=== PATIENT | male | born 1965 | race Caucasian/White ===

== ENCOUNTER 2017-03-21 09:20 | Emergency (ER) | payer OTHER ==
--- NOTE | ~2017-03-21 | CT4 ---
[facility] A Service of [facility] RADIOLOGY TEXT RESULTS PATIENT: CARLA PALOMARES LOCATION: [facility] : 61 UNIT #: [id number] AGE: [address]: Michael Polo MD SEX: M ORDER DR: [id number] [facility] [address] [place], [place] [address] [id number] MR#: [id number] #: [id number] NAME: CARLA PALOMARES : 1965 SEX: M STUDY DATE/TIME: 03/21/2017 UNIT: [facility] ROOM: STUDY DESCRIPTION: CT Abd and Pelv Wo Cont Attending Physician: Michael Polo M.D. Ordering Physician: Michael Polo M.D. Primary Care Physician: Drake Archer M.D. MEDICAL IMAGING REPORT This report is preliminary unless electronic signature is present EXAM CT abdomen and pelvis without contrast 03/21/2017 1233 hours. HISTORY 51-year-old man with left flank pain today. History of lymphoma. COMPARISON 02/06/2016 TECHNIQUE Helical noncontrasted images were obtained from the lung bases through the pubic symphysis without oral or intravenous contrast. Sagittal and coronal reconstructions were performed. Total exam DLP 783 mGy-cm. This CT exam was performed with one or more of the following radiation dose reduction techniques: automatic exposure control, adjustment of mA and/or kV according to patient size, and iterative reconstruction. FINDINGS Images through the lung bases are clear. There is no pleural effusion. The distal esophagus is normal. There is no retrocrural adenopathy. Images through the abdomen demonstrate a tiny cyst in the liver superiorly, unchanged. The spleen is normal in size and density. The pancreas, gallbladder, bile ducts, and adrenal glands are normal. The kidneys demonstrate no renal masses, stones, or distension. There are no renal or ureteral calculi. The abdominal aorta is normal in caliber with minimal atherosclerotic calcification present. The stomach and small bowel are normal. There is moderate stool in the colon without colonic wall thickening. The appendix is normal. [facility] A Service of [facility] RADIOLOGY TEXT RESULTS PATIENT: CARLA PALOMARES [id number] [birth year] UNIT #: [id number] AGE: [address]: Michael Polo MD SEX: M ORDER DR: The bladder, seminal vesicles, and prostate are normal. Again demonstrated are bilateral pelvic and inguinal lymph nodes. These were present on 02/06/2016, but each of the measured nodes is slightly larger, concerning for active lymphoma. Example right inguinal canal node measures 2.8 x 1.6 cm, previously 2.4 x 1.5 cm. Example left external iliac chain node measures 3.8 x 2.2 cm, previously 3.3 x 1.9 cm. Right inguinal node measures 3.0 x 2.1 cm, previously 2.9 x 1.4 cm. Left inguinal node measures 4.4 x 1.5 cm, previously 4.2 x 1.1 cm. There is a lymph node more superiorly in the pelvis medial to the right common iliac artery and vein measuring 1.7 x 1.6 cm, previously measuring 1.2 x 1.2 cm. There are small lymph nodes along the iliac vessels and around the distal aorta all measuring less than 5 mm, but slightly more numerous than seen previously. There is mild ground-glass change in the central mesenteric fat, which is new. There is no bulky mesenteric adenopathy, however. IMPRESSION 1. No renal or ureteral calculi. No bowel wall thickening. No evidence of appendicitis or cholecystitis. 2. The previously demonstrated lymph nodes in the lower pelvis and inguinal regions have increased in size from 02/06/2016. These are concerning for active lymphoma. There is also increase in size at an upper pelvic lymph node along the right common iliac artery and vein. Followup is warranted to exclude active lymphoma. 3. There is mild ground-glass change in the central mesenteric fat with a few tiny lymph nodes present similar to prior exam. The lymph nodes are stable, but the ground-glass change is new. This can be seen with acute inflammatory enteritis. It can also be seen post treatment for lymphoma. STAT * RESULT Dictated by... Anastasia Craig M.D. THIS IS AN ELECTRONICALLY VERIFIED REPORT Anastasia Craig M.D. at 03/21/2017 2:35 PM GIN/go TD: 03/21/2017 13:10 JOB #: [id number] MEDICAL IMAGING REPORT Page 1 of 1 COPY
[~2017-03-21 09:20] MED LIST: ALLOPURINOL300 MG PO; AMARYL PO; AMARYL2 MG PO; ANUSOL SUPP1 SUPP PR; ASPIRIN81 M1 PO; ASPIRIN81 M2 PO; CIPRO PO; CIPRO250 MG PO; COLACE PO; EFFIENT10 MG PO; FLEXERIL PO; FLEXERIL10 M1 PO; GLIMEPIRIDE2 MG PO; GLUCOPHAGE850 MG PO; GOUT MED; HCTZ PO; HYDROCHLOROTH12.5 MG PO; HYDROCO/APAP PO; HYDROCODON-ACE1 EACH PO; HYDROCODONE-APAP5 ML PO; HYDROCODONE/APA1 T15 PO; IBUPROFEN800 MG PO; INDOCIN SR75 MG PO; INDOMETHACIN50 MG PO; JANUVIA PO; LEVAQUIN PO; LEVAQUIN750 M1 PO; LIPITOR PO; LIPITOR20 MG DOB; LIPITOR20 MG PO; LORTAB 7.5-5001 TAB PO; METFORMIN HCL500 M1 PO; METFORMIN HCL850 MG PO; METFORMIN PO; METOPROLOL TAR25 MG PO; METOPROLOL TART25 MG PO; MOBIC7.5 MG/5 M PO; MULTI-DAY VITAM1 TAB PO; NEURONTIN PO; NEXIUM40 MG/PACK PO; NIASPAN PO; NITROGLYGERIN0.4 MG SL; OXYCODONE-ACET1 EACH PO; OXYCODONE-APAP1 CA2 PO; PRILOSEC20 MG PO; PROSTATE MED; PYRIDIUM PO; TYLOX 5/500 CAP1 CAP; TYLOX 5/500 CAP1 CAP PO; TYLOX1 CAP 5/50 PO; ZITHROMAX PO; ZYLOPRIM PO; [UNRECOGNIZED DRUG - OTHER] PO
[2017-03-21 09:49] LABS: URINE SOURCE CLEAN CATCH
[2017-03-21 10:02] LABS: URINE APPEARANCE CLEAR; URINE BILIRUBIN NEG (NEG); URINE BLOOD NEG (NEG); URINE COLOR YELLOW; URINE GLUCOSE NEG (NEG); URINE KETONE NEG (NEG); URINE LEUKOCYTE ESTERASE NEG (NEG); URINE NITRATE NEG (NEG); URINE PROTEIN NEG (NEG); URINE SPECIFIC GRAVITY 1.025 (1.003-1.035)
[2017-03-21 10:19] LABS: CULTURE INDICATED? NO
[2017-03-21 12:04] LABS: BASOPHIL# 0.2 X10e3 (0-0.3); BASOPHIL% 2.3 % (0-2.5); EOSINOPHIL# 0.2 X10e3 (0-0.7); EOSINOPHIL% 2.3 % (0.0-7.0); HEMATOCRIT 45.1 % (38.0-50.0); HEMOGLOBIN 14.9 gm/dL (13.0-16.0); LYMPHOCYTE# 1.5 X10e3 (1.0-3.5); LYMPHOCYTE% 20.9 % (17.0-45.0); MEAN CELL VOLUME 91.3 FL (83-96); MEAN CORPUSCULAR HEMOGLOBIN 30.1 PG (28-34); MEAN PLATELET VOLUME 9.6 FL (6.5-11.5); MONOCYTE# 0.8 X10e3 (0-1.0); MONOCYTE% 11.8 % (3.0-12.0); NEUTROPHIL# 4.5 X10e3 (1.5-7.1); NEUTROPHIL% 62.7 % (40-75); PLATELET COUNT 232 X10e3 (140-420); RED BLOOD COUNT 4.94 X10e (3.90-5.60); RED CELL DISTRIBUTION WIDTH 13.6 % (11.0-15.5); WHITE BLOOD COUNT 7.2 X10e3 (4.0-10.5)
[2017-03-21 12:08] LABS: DIFF IND NO
[2017-03-21 12:35] LABS: ALBUMIN SERUM 4.6 g/dL (3.5-5.0); BILIRUBIN, DIRECT 0.1 mg/dL (0.0-0.2); BILIRUBIN,INDIRECT 0.8 mg/dL (0.0-0.9); BILIRUBIN,TOTAL 0.9 mg/dL (0.2-2.0); CALCIUM SERUM 8.9 mg/dL (8.4-10.2); GLOM FILT RATE Estimated 85.6 mL/min (>60)
== END 2017-03-21 13:46 | disposition home or self-care (01) ==
LOC: CED 09:20
PROVIDERS: Emergency Medicine
DX: R10.9 Unspecified abdominal pain (principal); R59.1 Generalized enlarged lymph nodes; Z88.2 Allergy status to sulfonamides; Z88.5 Allergy status to narcotic agent; Z88.8 Allergy status to other drugs, medicaments and biological substances
CPT/HCPCS: 36415; 74176; 80048; 80076; 81003; 85025; 96374; 99284; J1885